=== PATIENT | female | born 1995 | race Two or more races ===

== ENCOUNTER 2016-12-27 22:41 | Emergency (ER) | payer OTHER ==
[2016-12-28] MEDS ORDERED: Morphine INJ* 2 MG/ML 1 ML SYRINGE IV ONE (01:23)
[2016-12-28] MEDS ORDERED: Ondansetron INJ* 2 MG/ML VIAL IV ONE (01:23)
[2016-12-28] MEDS ORDERED: NS 0.9% 1000 ML* 1,000 ML IV ONE (01:23)
[2016-12-28 02:06] LABS: Hematocrit 39 % (35-47); Hemoglobin 12.8 g/dl (12.0-16.0); Mean Corpuscular HGB Conc 33 g/dl (31-36); Mean Corpuscular Hemoglobin 29 pg (27-31); Mean Corpuscular Volume 89 fL (80-97); Mean Platelet Volume 7 um3 (7.4-10.4); Red Blood Count 4.36 10^6/ul (4.0-5.4); Red Cell Distribution Width 13 % (10.5-15); White Blood Count 8.2 10^3/ul (3.5-10.8)
[2016-12-28 02:19] LABS: ALT 12 U/L (7-52); AST 15 U/L (13-39); Albumin 4.2 g/dL (3.2-5.2); Alkaline Phosphatase 28 U/L (34-104); Anion Gap 6 mmol/L (2-11); BUN/Creatinine Ratio 17.7 (8-20); Blood Urea Nitrogen 11 mg/dL (6-24); CO2 Carbon Dioxide 27 mmol/L (22-32); Calcium 8.7 mg/dL (8.6-10.3); Chloride 103 mmol/L (101-111); EGFR African American 157.8 (>60); EGFR Non-African American 122.7 (>60); Globulin 2.5 g/dL (2-4); Glucose 98 mg/dL (70-100); Lipase 30 U/L (11.0-82.0); Potassium 3.4 mmol/L (3.5-5.0); Sodium 136 mmol/L (133-145); Total Protein 6.7 g/dL (6.4-8.9)
[2016-12-28] MEDS ORDERED: Iohexol 300* (CONTRAST) 10 ML SDV IV ONE (03:21)
[2016-12-28 05:02] LABS: Urine Bilirubin Negative (Negative); Urine Glucose Negative (Negative); Urine Nitrite Negative (Negative)
[2016-12-28] MEDS ORDERED: Pantoprazole TAB (NF) 40 MG TAB PO ONE (05:25)
[2016-12-28] MEDS ORDERED: Omeprazole CAP* 20 MG PO ONE (06:00)
[2016-12-28 06:18] VITALS: BP 103/65
--- NOTE | 2016-12-28 06:21 | ED ---
Divine Padilla SooYoung, scribed for Uriah Hilariouel on 12/28/16 at 0337 . Abdominal Pain/Female - HPI Summary HPI Summary: A 21 y/o F presents to ED with c/o abd pain onset 0600 on 12/27/16. Associated sx : nausea and fever yesterday. Denies vaginal bleeding, hematuria, CP, SOB. Pt took Motrin this afternoon to mild relief. No abd SHx. No ETOH, no smoking. Denies PMHx. Pt was seen at [facility] yesterday. - History of Current Complaint Chief Complaint: EDAbdPain Stated Complaint: ABD PAIN Time Seen by Provider: 12/28/16 01:19 Hx Obtained From: Patient Onset/Duration: Lasting Hours, Still Present Timing: Constant Severity Initially: Moderate Severity Currently: Moderate Pain Intensity: 4 Pain Scale Used: 0-10 Numeric Alleviating Factor(s): OTC Analgesics - mildly Associated Signs and Symptoms: Positive: Fever, Nausea. Negative: Chest Pain, Urinary Symptoms - neg: hematuria, Vaginal Bleeding, Other: - neg: SOB Allergies/Adverse Reactions: Allergies Allergy/AdvReac Type Severity Reaction Status Date / Time No Known Allergies Allergy Verified 12/27/16 22:44 PMH/Surg Hx/FS Hx/Imm Hx Previously Healthy: Yes - denies pert PMHx Endocrine/Hematology History: Denies: Hx Diabetes Cardiovascular History: Denies: Hx Hypertension Respiratory History: Denies: Hx Chronic Obstructive Pulmonary Disease (COPD) Sensory History: Denies: Hx Eye Prosthesis, Hx Legally Blind Opthamlomology History: Denies: Hx Eye Prosthesis, Hx Legally Blind Infectious Disease History: No Infectious Disease History: Denies: Traveled Outside the [place] in Last 30 Days - Family History Known Family History: Positive: Hypertension - father Negative: Cardiac Disease, Diabetes - Social History Occupation: Student Lives: With Family Alcohol Use: None Hx Tobacco Use: No Review of Systems Positive: Fever Negative: Chest Pain Negative: Shortness Of Breath Positive: Abdominal Pain, Nausea Negative: discharge - neg: vaginal bleeding, hematuria All Other Systems Reviewed And Are Negative: Yes Physical Exam Triage Information Reviewed: Yes Vital Signs On Initial Exam: Initial Vitals Temp Pulse Resp BP Pulse Ox 97.7 F 68 16 125/63 95 12/27/16 22:44 12/27/16 22:44 12/27/16 22:44 12/27/16 22:44 12/27/16 22:44 Vital Signs Reviewed: Yes Appearance: Positive: Well-Appearing, No Pain Distress Skin: Positive: Warm, Skin Color Reflects Adequate Perfusion, Dry Head/Face: Positive: Normal Head/Face Inspection Eyes: Positive: EOMI, PRECIOUS ENT: Positive: Normal ENT inspection Neck: Positive: Supple, Nontender Respiratory/Lung Sounds: Positive: Clear to Auscultation, Breath Sounds Present Cardiovascular: Positive: RRR, Pulses are Symmetrical in both Upper and Lower Extremities Abdomen Description: Positive: Soft, Other: - Tenderness to LLQ and LUQ Bowel Sounds: Positive: Present Musculoskeletal: Positive: Normal, Strength/ROM Intact Neurological: Positive: Normal, Sensory/Motor Intact, Alert, Oriented to Person Place, Time Diagnostics - Vital Signs Vital Signs Temp Pulse Resp BP Pulse Ox 12/27/16 23:57 97.8 F 70 16 110/61 99 12/27/16 22:44 97.7 F 68 16 125/63 95 - Laboratory Result Diagrams: 12/28/16 01:51 12/28/16 01:51 Lab Statement: Any lab studies that have been ordered have been reviewed, and results considered in the medical decision making process. - CT ABD/PEL CT CT Interpretation: Positive (See Comments) - See [facility] for full report. CT Interpretation Completed By: Radiologist Abdominal Pain Fem Course/Dx - Course Course Of Treatment: A 21 y/o F presents to ED with c/o abd pain onset 0600 on . Associated sx: nausea and fever yesterday. Denies vaginal bleeding, hematuria, CP, SOB. Pt took Motrin this afternoon to mild relief. No abd SHx. No ETOH, no smoking. Denies PMHx. Pt was seen at [facility] yesterday. Bloodwork and lab results are without any significant abnormalities. UA results show trace ketones and low specific gracity. ABD/PEL CT shows evidence of colitis. See [facility] for full report. Will D/C home with Levaquin, protonix and to f/u with PCP. - Diagnoses Provider Diagnoses: Abdominal pain, Colitis Discharge - Discharge Plan Condition: Stable Disposition: HOME Prescriptions: Levofloxacin TAB* [Levaquin TAB*] 500 mg PO DAILY #7 tab Pantoprazole TAB (NF) [Protonix TAB (NF)] 40 mg PO DAILY #30 tab Patient Education Materials: Acute Abdominal Pain (ED), Colitis (ED), Levofloxacin (By mouth), Pantoprazole (By mouth) Referrals: Non Staff,Doctor [Primary Care Provider] - [facility] [place] [facility] [Outside] Additional Instructions: Establish and follow up with a primary care provider in 3 days. Please return to the ED if you experience new or worsening symptoms. The documentation as recorded by the Divine victor SooYoung accurately reflects the service I personally performed and the decisions made by , Josh Hilario.
--- NOTE | 2016-12-28 07:59 | RAD ---
CLINICAL HISTORY: Abdominal pain, diverticulitis COMPARISON: None TECHNIQUE: Multiple contiguous axial CT scans were obtained of the abdomen and pelvis after the administration of intravenous contrast. Coronal and sagittal multiplanar reformations are submitted for review. Oral contrast was administered. Delayed images were obtained through the abdomen and pelvis. FINDINGS: LUNG BASES: There is a 0.3 cm nodule of the left lung base on axial image 5. LIVER: The liver is normal in shape, size, contour, and attenuation. BILE DUCTS: There is no intrahepatic or extrahepatic biliary dilatation. GALLBLADDER: The gallbladder is normal, without pericholecystic inflammatory change. PANCREAS: The pancreas is normal, without mass or ductal dilatation. SPLEEN: Normal in size and appearance. UPPER GI TRACT: Evaluation of the gastrointestinal tract is limited by incomplete gastric distention. The upper GI tract is unremarkable. SMALL BOWEL AND MESENTERY: The small bowel is normal in contour, course, and caliber. There is no obstruction or dilatation. COLON: The colon is normal in contour, course, caliber. There is no pericolonic inflammatory change. There is a tubular, vermiform, hollow viscus that is blind ending, and originates from the cecum, consistent with a normal appendix. There is no periappendiceal inflammatory change. This is best seen on axial image 62. As noted on the pulmonary report, there is incomplete distention of the colon with the splenic flexure. ADRENALS: Normal bilaterally. KIDNEYS: The kidneys are normal in shape, size, contour, and axis. There is no hydronephrosis or nephrolithiasis.. Vascular calcifications noted in the pelvis. BLADDER: The bladder is smooth in contour. PELVIC ORGANS: The uterus and adnexa are grossly normal for technique. There is small amount of free fluid within the pelvic cul-de-sac which may be physiologic within a reproductive age female. AORTA: The aorta is normal. IVC: Unremarkable LYMPH NODES: There is no lymphadenopathy by size criteria. ABDOMINAL WALL: There is no evidence for abdominal wall hernia. BONES AND SOFT TISSUES: Unremarkable OTHER: None IMPRESSION: 1. THERE IS INCOMPLETE DISTENTION OF THE COLON AT THE LEVEL OF THE SPLENIC FLEXURE. THIS IS LIKELY INCIDENTAL. FURTHER EVALUATION SHOULD BE BASED ON CLINICAL CHARACTERISTICS. 2. SMALL AMOUNT OF FLUID WITHIN THE PELVIC CUL-DE-SAC. THIS MAY BE PHYSIOLOGIC WITHIN A REPRODUCTIVE AGE FEMALE. 3. A VASCULAR CALCIFICATION IS NOTED IN PELVIS. 4. 0.3 CM NODULE OF THE LEFT LUNG BASE. FOR PATIENTS OVER 35, THE RECOMMENDATIONS FOR FOLLOWUP AND MANAGEMENT OF AN INCIDENTALLY DETECTED PULMONARY NODULE LESS THAN 6 MM IN SIZE, IN A PATIENT WITHOUT A HISTORY OF MALIGNANCY, INCLUDE NO FOLLOWUP FOR A LOW-RISK PATIENT OR OPTIONAL FOLLOWUP CT IN 12 MONTHS FOR A HIGH RISK PATIENT. FOR PATIENTS YOUNGER THAN 35, THE RISK IS CONSIDERED LOWER. NOTES: SIZE = AVERAGE LENGTH AND WIDTH; HIGH RISK IS DEFINED A HISTORY OF SMOKING OR OTHER KNOW RISK FACTORS FOR LUNG CANCER; LOW RISK IS DEFINED MINIMAL OR ABSENT HISTORY OF SMOKING OR OTHER KNOWN RISK FACTORS. Davey, H, JOCELYNE Tong, JONES Arteaga, et al (2017) "Guidelines for Management of Incidental Pulmonary Nodules Detected on CT Images: From the Fleischner Society 2017." Radiology; 284(1): 228-243. doi:10.1148/[id number]
== END 2016-12-28 06:37 | disposition home or self-care (01) ==
LOC: ED 22:41
DX: K52.9 Noninfective gastroenteritis and colitis, unspecified (principal); R10.9 Unspecified abdominal pain; R50.9 Fever, unspecified; R11.0 Nausea
CPT/HCPCS: 36415; 74177; 80053; 81003; 83605; 83690; 84702; 85025; 85610; 85730; 96374; 96375; 99284; A9270-GY; J2270; J2405; Q9967